=== PATIENT | female | born 1960 | race African-American/Black ===

== ENCOUNTER 2019-03-16 23:54 | Emergency (ER) | payer MEDICARE, MEDICAID ==
[~2019-03-16] VITALS: Ht 170.2 cm; Wt 87.0 kg
[2019-03-17 05:40] VITALS: BP 160/86
== END 2019-03-17 05:40 | disposition home or self-care (01) ==
LOC: ER 23:54
DX: L29.9 Pruritus, unspecified (principal); Z90.710 Acquired absence of both cervix and uterus
CPT/HCPCS: 99282